=== PATIENT | female | born 1955 | race Caucasian/White ===

== ENCOUNTER 2017-10-26 13:14 | Inpatient (IN) | payer BC ==
[2017-10-26] MEDS ORDERED: ALBUTEROL NEBULIZED 2.5 MG/3 ML INHALATION STA (13:17)
[2017-10-26] MEDS ORDERED: methylPREDNISolone SOD SUCCI 125 MG/2 ML VIAL IV STA (13:17)
[2017-10-26] MEDS ORDERED: SODIUM CHLORIDE 0.9% 1,000 ML IV STA (13:17)
[2017-10-26] MEDS ORDERED: IPRATROPIUM 0.5 MG/2.5 ML NEBU INHALATION STA (13:17)
[2017-10-26] MEDS ORDERED: ACETAMINOPHEN TAB 500 MG TAB PO STA (13:18)
--- NOTE | 2017-10-26 13:20 | ED ---
General Adult HPI - General Stated complaint: SOB Time Seen by Provider: 10/26/17 13:15 Source: RN notes reviewed - History of Present Illness Initial comments: This is a 62-year-old female who presents emergency Department with a history of smoking up until 2 weeks ago. Patient states over the last week significant difficulty breathing and coughing quite a bit. Patient states she did not know she had a fever even though here she has 100.2 temperature. Patient denies any chest pain or palpitations. Patient denies abdominal pain patient denies nausea vomiting or diarrhea. Patient denies any headache patient denies numbness weakness. Patient denies lightheadedness dizziness or near syncopal episode. Patient denies any back pain. Patient denies any recent injury or trauma. - Related Data Home Medications Medication Instructions Recorded Confirmed diphenhydrAMINE [Benadryl] 25 mg PO QID PRN 10/26/17 10/26/17 guaiFENesin [Mucinex] 600 mg PO BID PRN 10/26/17 10/26/17 Allergies Allergy/AdvReac Type Severity Reaction Status Date / Time No Known Allergies Allergy Verified 10/26/17 13:41 Review of Systems ROS Statement: Those systems with pertinent positive or pertinent negative responses have been documented in the HPI. ROS Other: All systems not noted in ROS Statement are negative. General Exam - General Exam Comments Initial Comments: GENERAL: Patient is well-developed and well-nourished. Patient is nontoxic and well- hydrated and is in moderate distress. ENT: Neck is soft and supple. No significant lymphadenopathy is noted. Oropharynx is clear. Moist mucous membranes. Neck has full range of motion without eliciting any pain. EYES: The sclera were anicteric and conjunctiva were pink and moist. Extraocular movements were intact and pupils were equal round and reactive to light. Eyelids were unremarkable. PULMONARY: Patient is wheezing diffusely CARDIOVASCULAR: Patient is tachycardic at 120 beats a minute ABDOMEN: Soft and nontender with normal bowel sounds. No palpable organomegaly was noted. There is no palpable pulsatile mass. SKIN: Skin is clear with no lesions or rashes and otherwise unremarkable. NEUROLOGIC: Patient is alert and oriented x3. Cranial nerves II through XII are grossly intact. Motor and sensory are also intact. Normal speech, volume and content. Symmetrical smile. MUSCULOSKELETAL: Normal extremities with adequate strength and full range of motion. No lower extremity swelling or edema. No calf tenderness. LYMPHATICS: No significant lymphadenopathy is noted PSYCHIATRIC: Normal psychiatric evaluation. Course Vital Signs 10/26/17 10/26/17 10/26/17 13:17 13:27 13:46 Temperature 100.4 F H Pulse Rate 138 H 133 H 137 H Respiratory 26 H Rate Blood Pressure 179/98 O2 Sat by Pulse 91 L Oximetry 10/26/17 10/26/17 13:53 14:28 Temperature 98.3 F Pulse Rate 130 H 111 H Respiratory 22 20 Rate Blood Pressure 194/93 161/83 O2 Sat by Pulse 96 94 L Oximetry Medical Decision Making - Medical Decision Making EKG shows a sinus tachycardia at 135 bpm ME interval is 152 QRS is 60 QT interval is 288 QTC is 432. Patient's EKG shows no significant ST segment elevations. Chest x-ray infiltrate right medial lung base. I started the patient on Rocephin and Zithromax. I continue treatments steroids and antibiotics on the floor. I spoke with because neither the patient for COPD per day consult the pulmonology. I wrote admitting orders. - Lab Data Result diagrams: 10/26/17 13:24 10/26/17 13:24 Lab Results 10/26/17 10/26/17 10/26/17 Range/Units 13:24 13:24 13:24 WBC 12.0 H (3.8-10.6) k/uL RBC 4.77 (3.80-5.40) m/uL Hgb 14.5 (11.4-16.0) gm/dL Hct 45.0 (34.0-46.0) % MCV 94.3 (80.0-100.0) fL MCH 30.4 (25.0-35.0) pg MCHC 32.2 (31.0-37.0) g/dL RDW 12.0 (11.5-15.5) % Plt Count 277 (150-450) k/uL Neutrophils % 86 % Lymphocytes % 9 % Monocytes % 4 % Eosinophils % 1 % Basophils % 0 % Neutrophils # 10.3 H (1.3-7.7) k/uL Lymphocytes # 1.1 (1.0-4.8) k/uL Monocytes # 0.5 (0-1.0) k/uL Eosinophils # 0.1 (0-0.7) k/uL Basophils # 0.0 (0-0.2) k/uL PT (9.0-12.0) sec INR (<1.2) APTT (22.0-30.0) sec Sodium 142 (137-145) mmol/L Potassium 4.0 (3.5-5.1) mmol/L Chloride 101 (98-107) mmol/L Carbon Dioxide 28 (22-30) mmol/L Anion Gap 13 mmol/L BUN 8 (7-17) mg/dL Creatinine 0.60 (0.52-1.04) mg/dL Est GFR (CKD-EPI)AfAm >90 (>60 ml/min/1.73 sqM) Est GFR (CKD-EPI)NonAf >90 (>60 ml/min/1.73 sqM) Glucose 127 H (74-99) mg/dL Plasma Lactic Acid Eddie (0.7-2.0) mmol/L Calcium 10.0 (8.4-10.2) mg/dL Magnesium 2.0 (1.6-2.3) mg/dL Total Bilirubin 0.6 (0.2-1.3) mg/dL AST 26 (14-36) U/L ALT 26 (9-52) U/L Alkaline Phosphatase 101 (38-126) U/L Total Creatine Kinase 167 H (30-135) U/L CK-MB (CK-2) 1.7 (0.0-2.4) ng/mL CK-MB (CK-2) Rel Index 1.0 Troponin I <0.012 (0.000-0.034) ng/mL NT-Pro-B Natriuret Pep pg/mL Total Protein 7.3 (6.3-8.2) g/dL Albumin 4.3 (3.5-5.0) g/dL Influenza Type A RNA (Not Detectd) Influenza Type B (PCR) (Not Detectd) 10/26/17 10/26/17 10/26/17 Range/Units 13:24 13:24 13:24 WBC (3.8-10.6) k/uL RBC (3.80-5.40) m/uL Hgb (11.4-16.0) gm/dL Hct (34.0-46.0) % MCV (80.0-100.0) fL MCH (25.0-35.0) pg MCHC (31.0-37.0) g/dL RDW (11.5-15.5) % Plt Count (150-450) k/uL Neutrophils % % Lymphocytes % % Monocytes % % Eosinophils % % Basophils % % Neutrophils # (1.3-7.7) k/uL Lymphocytes # (1.0-4.8) k/uL Monocytes # (0-1.0) k/uL Eosinophils # (0-0.7) k/uL Basophils # (0-0.2) k/uL PT 9.6 (9.0-12.0) sec INR 1.0 (<1.2) APTT 22.2 (22.0-30.0) sec Sodium (137-145) mmol/L Potassium (3.5-5.1) mmol/L Chloride (98-107) mmol/L Carbon Dioxide (22-30) mmol/L Anion Gap mmol/L BUN (7-17) mg/dL Creatinine (0.52-1.04) mg/dL Est GFR (CKD-EPI)AfAm (>60 ml/min/1.73 sqM) Est GFR (CKD-EPI)NonAf (>60 ml/min/1.73 sqM) Glucose (74-99) mg/dL Plasma Lactic Acid Eddie 1.1 (0.7-2.0) mmol/L Calcium (8.4-10.2) mg/dL Magnesium (1.6-2.3) mg/dL Total Bilirubin (0.2-1.3) mg/dL AST (14-36) U/L ALT (9-52) U/L Alkaline Phosphatase (38-126) U/L Total Creatine Kinase (30-135) U/L CK-MB (CK-2) (0.0-2.4) ng/mL CK-MB (CK-2) Rel Index Troponin I (0.000-0.034) ng/mL NT-Pro-B Natriuret Pep 287 pg/mL Total Protein (6.3-8.2) g/dL Albumin (3.5-5.0) g/dL Influenza Type A RNA (Not Detectd) Influenza Type B (PCR) (Not Detectd) 03/22/18 Range/Units 13:24 WBC (3.8-10.6) k/uL RBC (3.80-5.40) m/uL Hgb (11.4-16.0) gm/dL Hct (34.0-46.0) % MCV (80.0-100.0) fL MCH (25.0-35.0) pg MCHC (31.0-37.0) g/dL RDW (11.5-15.5) % Plt Count (150-450) k/uL Neutrophils % % Lymphocytes % % Monocytes % % Eosinophils % % Basophils % % Neutrophils # (1.3-7.7) k/uL Lymphocytes # (1.0-4.8) k/uL Monocytes # (0-1.0) k/uL Eosinophils # (0-0.7) k/uL Basophils # (0-0.2) k/uL PT (9.0-12.0) sec INR (<1.2) APTT (22.0-30.0) sec Sodium (137-145) mmol/L Potassium (3.5-5.1) mmol/L Chloride (98-107) mmol/L Carbon Dioxide (22-30) mmol/L Anion Gap mmol/L BUN (7-17) mg/dL Creatinine (0.52-1.04) mg/dL Est GFR (CKD-EPI)AfAm (>60 ml/min/1.73 sqM) Est GFR (CKD-EPI)NonAf (>60 ml/min/1.73 sqM) Glucose (74-99) mg/dL Plasma Lactic Acid Eddie (0.7-2.0) mmol/L Calcium (8.4-10.2) mg/dL Magnesium (1.6-2.3) mg/dL Total Bilirubin (0.2-1.3) mg/dL AST (14-36) U/L ALT (9-52) U/L Alkaline Phosphatase (38-126) U/L Total Creatine Kinase (30-135) U/L CK-MB (CK-2) (0.0-2.4) ng/mL CK-MB (CK-2) Rel Index Troponin I (0.000-0.034) ng/mL NT-Pro-B Natriuret Pep pg/mL Total Protein (6.3-8.2) g/dL Albumin (3.5-5.0) g/dL Influenza Type A RNA Not Detected (Not Detectd) Influenza Type B (PCR) Not Detected (Not Detectd) Critical Care Time Critical Care Time: Yes Total Critical Care Time: 35 Disposition Clinical Impression: Pneumonia Disposition: ADMITTED IP TO THIS HOSP Referrals: Jhonatan Artis DO [Primary Care Provider] - 1-2 days Time of Disposition: 14:35
[2017-10-26 13:34] LABS: Basophils % (A) 0 %; Eosinophils # (A) 0.1 k/uL (0-0.7); Eosinophils % (A) 1 %; HGB 14.5 gm/dL (11.4-16.0); Lymphocytes # (A) 1.1 k/uL (1.0-4.8); Lymphocytes % (A) 9 %; MCH 30.4 pg (25.0-35.0); MCHC 32.2 g/dL (31.0-37.0); MCV 94.3 fL (80.0-100.0); Mean Platelet Volume 7.6; Monocytes # (A) 0.5 k/uL (0-1.0); Monocytes % (A) 4 %; Neutrophils # (A) 10.3 k/uL (1.3-7.7); Neutrophils % (A) 86 %; Platelet Count 277 k/uL (150-450); RBC 4.77 m/uL (3.80-5.40)
[2017-10-26 13:42] LABS: Partial Thromboplastin Time 22.2 sec (22.0-30.0); Prothrombin Time 9.6 sec (9.0-12.0)
[2017-10-26 13:43] LABS: ALT 26 U/L (9-52); AST 26 U/L (14-36); Albumin 4.3 g/dL (3.5-5.0); Alkaline Phosphatase 101 U/L (38-126); Anion Gap 13 mmol/L; Blood Urea Nitrogen 8 mg/dL (7-17); Carbon Dioxide 28 mmol/L (22-30); Chloride 101 mmol/L (98-107); Glucose 127 mg/dL (74-99); Sodium 142 mmol/L (137-145); Total Bilirubin 0.6 mg/dL (0.2-1.3); Total Protein 7.3 g/dL (6.3-8.2)
[2017-10-26 13:57] LABS: Creatine Kinase 167 U/L (30-135)
--- NOTE | 2017-10-26 14:09 | XR ---
EXAMINATION TYPE: XR chest 2V DATE OF EXAM: 10/26/2017 COMPARISON: NONE HISTORY: Shortness of breath TECHNIQUE: Frontal and lateral views of the chest are obtained. FINDINGS: Scattered senescent parenchymal changes noted. Hyperinflation compatible with COPD. Increased density right medial lung base could reflect atelectasis or developing infiltrate. Correlat e clinically and consider progress studies. Heart size is stable. Mediastinal structures are stable and grossly unremarkable. No evidence for hilar prominence. Degenerative changes dorsal spine. IMPRESSION: 1. Increased density right medial lung base could reflect atelectasis or developing infiltrate. Corre late clinically and consider progress studies.
[2017-10-26 14:10] LABS: Creatine Kinase MB 1.7 ng/mL (0.0-2.4); Troponin I <0.012 ng/mL (0.000-0.034)
[2017-10-26] MEDS ORDERED: cefTRIAXone IN SWFI 1,000 MG/10 ML SYRINGE IVP STA (14:30)
[2017-10-26] MEDS ORDERED: AZITHROMYCIN 500 MG in SODIUM CHLORIDE 0.9% 250 ML IVPB STA (14:34)
[2017-10-26] MEDS ORDERED: PNEUMONIA PROTOCOL UTILIZED 1 EACH MISC PO PRN (14:35)
[2017-10-26] MEDS ORDERED: IPRATROPIUM-ALBUTEROL 3 ML NEB INHALATION PRN (15:21)
[2017-10-26] MEDS ORDERED: diphenhydrAMINE 25 MG CAP PO PRN (15:22)
--- NOTE | 2017-10-26 15:27 | P.HPIM ---
History of Present Illness 62-year-old female never diagnosed with COPD came in with compensative shortness of breath has been going on for 2 days much worse today along with cough with white-yellow sputum production smoke 1 pack per day has been smoking since age 16 patient denied any fever chills patient has some atelectasis in the right lower lung [place]. Patient denied any fever chills. Review of Systems REVIEW OF SYSTEMS: CONSTITUTIONAL: No fever, no malaise, no fatigue. HEENT: No recent visual problems or hearing problems. Denied any sore throat. CARDIOVASCULAR: No chest pain, orthopnea, PND, no palpitations, no syncope. PULMONARY: no hemoptysis. GASTROINTESTINAL: No diarrhea, no nausea, no vomiting, no abdominal pain. Normoactive bowel sounds. NEUROLOGICAL: No headaches, no weakness, no numbness. HEMATOLOGICAL: Denies any bleeding or petechiae. GENITOURINARY: Denies any burning micturition, frequency, or urgency. MUSCULOSKELETAL/RHEUMATOLOGICAL: Denies any joint pain, swelling, or any muscle pain. ENDOCRINE: Denies any polyuria or polydipsia. The rest of the 14-point review of systems is negative. Past Medical History Past Medical History: No Reported History History of Any Multi-Drug Resistant Organisms: None Reported Past Surgical History: Breast Surgery Past Psychological History: No Psychological Hx Reported Smoking Status: Former smoker Past Alcohol Use History: Occasional Past Drug Use History: None Reported Medications and Allergies Home Medications Medication Instructions Recorded Confirmed Type diphenhydrAMINE [Benadryl] 25 mg PO QID PRN 10/26/17 10/26/17 History guaiFENesin [Mucinex] 600 mg PO BID PRN 10/26/17 10/26/17 History Allergies Allergy/AdvReac Type Severity Reaction Status Date / Time No Known Allergies Allergy Verified 10/26/17 13:41 Physical Exam Vitals: Vital Signs Temp Pulse Resp BP Pulse Ox 10/26/17 15:04 125 H 22 158/69 93 L 10/26/17 14:28 98.3 F 111 H 20 161/83 94 L 10/26/17 13:53 130 H 22 194/93 96 10/26/17 13:46 137 H 10/26/17 13:27 133 H 10/26/17 13:17 100.4 F H 138 H 26 H 179/98 91 L Intake and Output 10/26/17 10/26/17 10/26/17 06:59 14:59 22:59 Other: Weight 68.039 kg PHYSICAL EXAMINATION: GENERAL: The patient is alert and oriented x3, not in any acute distress. Well developed, well nourished. HEENT: Pupils are round and equally reacting to light. EOMI. No scleral icterus. No conjunctival pallor. Normocephalic, atraumatic. No pharyngeal erythema. No thyromegaly. CARDIOVASCULAR: S1 and S2 present. No murmurs, rubs, or gallops. PULMONARY: Decreased air entry bilateral lung everett minimal expiratory wheezing was appreciated rhonchus breath sounds ABDOMEN: Soft, nontender, nondistended, normoactive bowel sounds. No palpable organomegaly. MUSCULOSKELETAL: No joint swelling or deformity. EXTREMITIES: No cyanosis, clubbing, or pedal edema. NEUROLOGICAL: Gross neurological examination did not reveal any focal deficits. SKIN: No rashes. Results CBC & Chem 7: 10/26/17 13:24 10/26/17 13:24 Labs: Abnormal Lab Results - Last 24 Hours (Table) 10/26/17 10/26/17 10/26/17 Range/Units 13:24 13:24 13:24 WBC 12.0 H (3.8-10.6) k/uL Neutrophils # 10.3 H (1.3-7.7) k/uL Glucose 127 H (74-99) mg/dL Total Creatine Kinase 167 H (30-135) U/L Assessment and Plan Plan: -Acute hypercapnic respiratory failure secondary to COPD exacerbation, patient was started on systemic steroids patient only has minimal wheeze I'm expecting her to improve by tomorrow. Patient will need outpatient pulmonary function testing. Patient will be on azithromycin for bronchitis. My suspicion for pneumonia is extremely low patient does have atelectasis incentive spirometry. Pulmonary will be consulted. -Tracheobronchitis -" In use: Counseling was provided -Post [employer] drip with the seasonal ALLERGIES: Patient is on diphenhydramine which will be continued
[2017-10-26] MEDS ORDERED: RX INFO: IV CONTRAST WAS GIVEN 1 EACH MISC MISCELLANE PRN (15:28)
[2017-10-26] MEDS: IPRATROPIUM-ALBUTEROL 3 ML NEB INHALATION SCH ×2 (16:35→19:57)
[2017-10-27 07:25] LABS: HGB 13.9 gm/dL (11.4-16.0); MCH 32.3 pg (25.0-35.0); MCHC 33.8 g/dL (31.0-37.0); MCV 95.6 fL (80.0-100.0); Mean Platelet Volume 7.1; Platelet Count 309 k/uL (150-450); RBC 4.29 m/uL (3.80-5.40); RDW 11.8 % (11.5-15.5); WBC 12.4 k/uL (3.8-10.6)
[2017-10-27 07:38] LABS: Anion Gap 15 mmol/L; Blood Urea Nitrogen 7 mg/dL (7-17); Calcium 9.9 mg/dL (8.4-10.2); Carbon Dioxide 23 mmol/L (22-30); Chloride 105 mmol/L (98-107); Glucose 108 mg/dL (74-99); Magnesium 2.2 mg/dL (1.6-2.3); Potassium 4.4 mmol/L (3.5-5.1); Sodium 143 mmol/L (137-145)
[2017-10-27] MEDS: IPRATROPIUM-ALBUTEROL 3 ML NEB INHALATION SCH ×4 (07:47→20:20)
[2017-10-27] MEDS: AZITHROMYCIN 500 MG TAB PO SCH (08:35)
[2017-10-27] MEDS ORDERED: predniSONE 20 MG TAB PO SCH (09:00)
--- NOTE | 2017-10-27 12:10 | P.PN ---
Subjective Patient was admitted for presumed exacerbation still wheezing is on 2 L will will taper oxygen off. There is still concern for pulmonary embolism, will obtain a CT angios the chest to rule out PE today. Constitutional: Denied any fatigue denied any fever. Cardio vascular: denied any chest pain, palpitations Gastrointestinal denied any nausea vomiting Pulmonary: Shortness of breath improved compared to yesterday. Neurologic denied any new focal deficits Objective - Vital Signs Vital signs: Vital Signs Temp 97.2 F L 10/27/17 11:30 Pulse 91 10/27/17 11:30 Resp 24 10/27/17 11:30 BP 158/77 10/27/17 11:30 Pulse Ox 95 10/27/17 11:30 Intake & Output 10/26/17 10/27/17 10/27/17 18:59 06:59 18:59 Intake Total 120 425 240 Output Total 300 Balance 120 425 -60 Weight 68.039 kg 66.5 kg Intake: Intake, IV Titration 125 Amount Azithromycin 500 mg In 125 Sodium Chloride 0.9% 250 ml @ 125 mls/hr IVPB Q24H [facility] Rx#:[id number] Oral 120 300 240 Output: Urine 300 Other: Voiding Method Toilet Toilet Toilet # Voids 1 1 1 - Exam PHYSICAL EXAMINATION: GENERAL: The patient is alert and oriented x3, not in any acute distress. Well developed, well nourished. HEENT: Pupils are round and equally reacting to light. EOMI. No scleral icterus. No conjunctival pallor. Normocephalic, atraumatic. No pharyngeal erythema. No thyromegaly. CARDIOVASCULAR: S1 and S2 present. No murmurs, rubs, or gallops. PULMONARY: Decreased air entry bilateral lung [place]rett minimal expiratory wheezing was appreciated rhonchus breath sounds ABDOMEN: Soft, nontender, nondistended, normoactive bowel sounds. No palpable organomegaly. MUSCULOSKELETAL: No joint swelling or deformity. EXTREMITIES: No cyanosis, clubbing, or pedal edema. NEUROLOGICAL: Gross neurological examination did not reveal any focal deficits. SKIN: No rashes. - Labs CBC & Chem 7: 10/27/17 07:06 10/27/17 07:06 Labs: Abnormal Lab Results - Last 24 Hours (Table) 10/26/17 10/26/17 10/26/17 Range/Units 13:24 13:24 13:24 WBC 12.0 H (3.8-10.6) k/uL Neutrophils # 10.3 H (1.3-7.7) k/uL Creatinine (0.52-1.04) mg/dL Glucose 127 H (74-99) mg/dL Total Creatine Kinase 167 H (30-135) U/L 10/27/17 10/27/17 Range/Units 07:06 07:06 WBC 12.4 H (3.8-10.6) k/uL Neutrophils # (1.3-7.7) k/uL Creatinine 0.43 L (0.52-1.04) mg/dL Glucose 108 H (74-99) mg/dL Total Creatine Kinase (30-135) U/L Assessment and Plan Plan: -Acute hypercapnic respiratory failure secondary to COPD exacerbation, patient was started on systemic steroids Patient will need outpatient pulmonary function testing. Patient will be on azithromycin for bronchitis. My suspicion for pneumonia is extremely low patient does have atelectasis incentive spirometry. Pulmonary will be consulted. -Tracheobronchitis -" In use: Counseling was provided -Post [employer] drip with the seasonal ALLERGIES: Patient is on diphenhydramine which will be continued -Rule out pulmonary embolism
[2017-10-27] MEDS ORDERED: IPRATROPIUM-ALBUTEROL 3 ML NEB INHALATION PRN (13:00)
[2017-10-27] MEDS ORDERED: diphenhydrAMINE 25 MG CAP PO PRN (13:07)
--- NOTE | 2017-10-27 13:55 | P.CNPUL ---
History of Present Illness Consult date: 10/27/17 Reason for consult: dyspnea, cough, COPD, hypoxemia, pneumonia, abnormal CXR/CT Chief complaint: Shortness of breath, pneumonia History of present illness: Consult dated 10/27/2017 62-year-old female who presents to the emergency department complaining of shortness of breath cough chest congestion and difficulty breathing. She also had a fever. She hasn't been feeling well for last week or so. She's been smoking up until about 2 weeks ago. She's been smoking for many many years and likely has underlying COPD. The patient states that she's had chest congestion coughing wheezing and phlegm production. Again hasn't been feeling well for about a week or so. Recently stopped smoking. The patient has never seen a lung doctor before. Has no established history of COPD. The patient's chest x- ray shows evidence of COPD and possible right lower lobe infiltrate. Chest auscultation showed symptoms significant wheezing and coarseness as well as rhonchi. There is also prolongation on forced maneuver consistent with underlying COPD. Review of Systems A 12 point review of system is positive for chest congestion coughing wheezing shortness of breath difficulty breathing. She does cough up some yellow phlegm. Past Medical History Past Medical History: No Reported History History of Any Multi-Drug Resistant Organisms: None Reported Past Surgical History: Breast Surgery Past Psychological History: No Psychological Hx Reported Smoking Status: Former smoker Past Alcohol Use History: Occasional Past Drug Use History: None Reported Medications and Allergies Home Medications Medication Instructions Recorded Confirmed Type diphenhydrAMINE [Benadryl] 25 mg PO QID PRN 10/26/17 10/26/17 History guaiFENesin [Mucinex] 600 mg PO BID PRN 10/26/17 10/26/17 History Allergies Allergy/AdvReac Type Severity Reaction Status Date / Time No Known Allergies Allergy Verified 10/26/17 13:41 Physical Exam Osteopathic Statement: *. No significant issues noted on an osteopathic structural exam other than those noted in the History and Physical/Consult. Vitals: Vital Signs Temp Pulse Pulse Resp BP BP Pulse Ox 10/27/17 11:30 97.2 F L 91 24 158/77 95 10/27/17 11:29 105 H 18 10/27/17 11:25 99 10/27/17 11:15 96 10/27/17 08:17 18 95 10/27/17 08:00 96.5 F L 96 105 H 18 154/72 88 L 10/27/17 07:49 88 10/27/17 04:00 96.9 F L 82 19 151/93 97 10/27/17 00:00 97.0 F L 96 19 144/80 97 10/26/17 20:05 105 H 16 10/26/17 20:00 97.5 F L 104 H 16 143/84 92 L 10/26/17 19:57 105 H 16 10/26/17 18:31 97.4 F L 123 H 24 160/82 92 L 10/26/17 18:26 123 H 16 10/26/17 18:25 93 L 10/26/17 16:40 110 H 16 10/26/17 16:33 107 H 16 95 10/26/17 15:21 97.4 F L 123 H 24 160/82 92 L 10/26/17 15:04 125 H 22 158/69 93 L 10/26/17 14:28 98.3 F 111 H 20 161/83 94 L 10/26/17 13:53 130 H 22 194/93 96 Intake and Output 10/26/17 10/27/17 10/27/17 22:59 06:59 14:59 Intake Total 120 425 240 Output Total 300 Balance 120 425 -60 Intake: Intake, IV Titration 125 Amount Azithromycin 500 mg In 125 Sodium Chloride 0.9% 250 ml @ 125 mls/hr IVPB Q24H [facility] Rx#:[id number] Oral 120 300 240 Output: Urine 300 Other: Voiding Method Toilet Toilet Toilet # Voids 1 1 1 Weight 66.5 kg No acute distress, oriented 3. Nasal O2 in place. HEENT examination is grossly unremarkable. Mucous membranes are moist. No oral lesions. Neck supple. Full range of motion. No adenopathy thyromegaly or neck vein distention. Cardiovascular examination reveals regular rhythm rate. S1-S2 normal. No S3 or S4. No discernible murmur noted. Lungs reveal coarse inspiratory and expiratory rhonchi and wheezes. Breath sounds are diminished. There is prolongation on forced maneuver. The patient coughs and wheezes on forced maneuver. Abdomen soft bowel sounds are heard. No masses or tenderness. Extremities are intact. No cyanosis clubbing or edema. Skin is without rash or lesion. Neurologic examination is brief but nonfocal. Results - Laboratory Findings CBC and BMP: 10/27/17 07:06 10/27/17 07:06 PT/INR, D-dimer PT 9.6 sec (9.0-12.0) 10/26/17 13:24 INR 1.0 (<1.2) 10/26/17 13:24 Abnormal lab findings: Abnormal Labs 10/26/17 10/26/17 10/26/17 13:24 13:24 13:24 WBC 12.0 H Neutrophils # 10.3 H Creatinine Glucose 127 H Total Creatine Kinase 167 H 10/27/17 10/27/17 07:06 07:06 WBC 12.4 H Neutrophils # Creatinine 0.43 L Glucose 108 H Total Creatine Kinase - Diagnostic Findings Chest x-ray: image reviewed (Labs x-rays a medications are all reviewed.) Assessment and Plan Assessment: Assessment Likely COPD exacerbation complicated by purulent tracheobronchitis or bronchopneumonia, right lower lobe COPD, likely secondary to heavy tobacco use Recent tobacco cessation Plan: Plan dated 10/27/2017 I've cut the prednisone dose down from 60 mg to 30 mg a day. The patient will continue with the updrafts 3 times a day and when necessary. The patient's currently on Zithromax and Rocephin his antibiotics for her pneumonia. She is doing okay. I suspect she'll be able to be discharged tomorrow. She should have follow-up in the pulmonary office for pulmonary function test. She is really not happy about any the medications that she is on it she normally takes no medication at home. Time with Patient: Greater than 30
--- NOTE | 2017-10-27 14:39 | XR ---
EXAMINATION TYPE: XR chest 2V DATE OF EXAM: 10/27/2017 COMPARISON: Prior chest x-ray 10/26/2017 HISTORY: Shortness of breath, pneumonia TECHNIQUE: Frontal and lateral views of the chest are obtained. FINDINGS: There is no pleural effusion or pneumothorax seen. Question some increased density in the right middle lobe as on prior exam although there may be a pectus deformity which could cause this ap pearance, correlate. Prominent lung volumes may be indicative of COPD, bronchial wall thickening note d. The cardiac silhouette size is within normal limits. There is a spinal curvature. The osseous str uctures are intact. IMPRESSION: Correlate for pneumonia versus bronchitis or reactive airways disease, follow-up as darlyn cated.
[2017-10-27] MEDS ORDERED: cefTRIAXone IN SWFI 1,000 MG/10 ML SYRINGE IVP SCH (16:00)
[2017-10-27] MEDS ORDERED: AZITHROMYCIN 500 MG in SODIUM CHLORIDE 0.9% 250 ML IVPB SCH (16:00)
[2017-10-27] MEDS ORDERED: diphenhydrAMINE 25 MG CAP PO SCH (16:00)
[2017-10-28] MEDS: IPRATROPIUM-ALBUTEROL 3 ML NEB INHALATION SCH ×2 (07:41→13:31)
[2017-10-28] MEDS ORDERED: predniSONE 10 MG TAB PO SCH (09:00)
[2017-10-28 09:32] LABS: HCT 38.9 % (34.0-46.0); HGB 12.7 gm/dL (11.4-16.0); MCH 30.8 pg (25.0-35.0); MCHC 32.6 g/dL (31.0-37.0); MCV 94.4 fL (80.0-100.0); Mean Platelet Volume 8.8; Platelet Count 284 k/uL (150-450); RBC 4.12 m/uL (3.80-5.40); RDW 12.1 % (11.5-15.5); WBC 12.8 k/uL (3.8-10.6)
[2017-10-28 10:31] LABS: Anion Gap 14 mmol/L
[2017-10-28 10:40] LABS: Blood Urea Nitrogen 10 mg/dL (7-17); Carbon Dioxide 25 mmol/L (22-30); Chloride 105 mmol/L (98-107); Glucose 108 mg/dL (74-99); Potassium 3.9 mmol/L (3.5-5.1); Sodium 144 mmol/L (137-145)
[2017-10-28 10:41] LABS: Calcium 9.5 mg/dL (8.4-10.2)
--- NOTE | 2017-10-28 12:21 | P.PN ---
Subjective Progress Note Date: 10/28/17 Principal diagnosis: Shortness of breath, COPD exacerbation Progress note dated 10/28/2017 This is a very pleasant 62-year-old female who was admitted with a diagnosis of COPD exacerbation and tracheobronchitis as bronchopneumonia, right lower lobe. She likely has COPD from heavy tobacco use. Yesterday she was very angry and today she is doing much better. She wants to be discharged home to finish therapy at home. The patient also has a history of recent tobacco cessation. She does not really take any medications at home. She is feeling a lot better today though. Objective - Vital Signs Vital signs: Vital Signs Temp 97.0 F L 10/28/17 06:34 Pulse 92 10/28/17 07:53 Resp 20 10/28/17 06:34 BP 155/98 10/28/17 06:34 Pulse Ox 94 L 10/28/17 06:34 Intake & Output 10/27/17 10/28/17 10/28/17 18:59 06:59 18:59 Intake Total 240 950 Output Total 800 Balance -560 950 Intake: Oral 240 950 Output: Urine 800 Other: Voiding Method Toilet # Voids 1 2 - Exam No acute distress, oriented 3. HEENT examination is grossly unremarkable. Mucous membranes are moist. No oral lesions. Neck supple. Full range of motion. No adenopathy thyromegaly or neck vein distention. Cardiovascular examination reveals regular rhythm rate. S1-S2 normal. No S3 or S4. No discernible murmur noted. Lungs reveal a few scattered rhonchi and wheezes. Breath sounds are diminished. This prolongation on forced maneuver. The patient certainly sounds better but not back to baseline.. Abdomen soft bowel sounds are heard. No masses or tenderness. Extremities are intact. No cyanosis clubbing or edema. Skin is without rash or lesion. Neurologic examination is brief but nonfocal. - Labs CBC & Chem 7: 10/28/17 08:30 10/28/17 08:30 Labs: Abnormal Lab Results - Last 24 Hours (Table) 10/28/17 10/28/17 Range/Units 08:30 08:30 WBC 12.8 H (3.8-10.6) k/uL Glucose 108 H (74-99) mg/dL Microbiology - Last 24 Hours (Table) 10/26/17 13:24 Blood Culture - Preliminary Blood No Growth after 24 hours Assessment and Plan Assessment: Assessment Likely COPD exacerbation complicated by purulent tracheobronchitis or bronchopneumonia, right lower lobe COPD, likely secondary to heavy tobacco use Recent tobacco cessation Plan: Plan dated 10/27/2017 I've cut the prednisone dose down from 60 mg to 30 mg a day. The patient will continue with the updrafts 3 times a day and when necessary. The patient's currently on Zithromax and Rocephin his antibiotics for her pneumonia. She is doing okay. I suspect she'll be able to be discharged tomorrow. She should have follow-up in the pulmonary office for pulmonary function test. She is really not happy about any the medications that she is on it she normally takes no medication at home. Plan dated 10/28/2017 The patient could be discharged home. This cut back the prednisone dose. She can be discharged home with some oral antibiotics. She'll finish up therapy at home. She promises to come see me in the office for follow-up. She will need a pulmonary function test. Labs from today include a white count of 12.8 hemoglobin and hematocrit and platelet count all of which was normal. Her electrolytes look pretty good. Sodium potassium chloride and CO2 as well as renal function all normal. Nasal swabs for influenza were normal. Time with Patient: Less than 30
[2017-10-28] MEDS: AZITHROMYCIN 500 MG TAB PO SCH (12:40)
--- NOTE | 2017-10-28 13:18 | P.DS ---
Providers Date of admission: 10/26/17 14:35 Attending physician: Jill Martinez Consults: 10/26/17 14:35 Consult Physician Routine Consulting Provider: Ranjan Edge Consult Reason/Comments: COPD, pneumonia Do you want consulting provider notified?: Yes 10/26/17 15:27 Consult Physician Routine Consulting Provider: Megan Jackson Consult Reason/Comments: COPD exacerbation Do you want consulting provider notified?: Yes [facility] care [facility] Course: Patient was admitted for COPD exacerbation patient is fairly clinically doing well is requiring oxygen patient is now is independent COPD and also dependent respiratory failure patient will require 2 L of onset at home. PHYSICAL EXAMINATION: GENERAL: The patient is alert and oriented x3, not in any acute distress. Well developed, well nourished. HEENT: Pupils are round and equally reacting to light. EOMI. No scleral icterus. No conjunctival pallor. Normocephalic, atraumatic. No pharyngeal erythema. No thyromegaly. CARDIOVASCULAR: S1 and S2 present. No murmurs, rubs, or gallops. PULMONARY: Wheezing improved significantly. ABDOMEN: Soft, nontender, nondistended, normoactive bowel sounds. No palpable organomegaly. MUSCULOSKELETAL: No joint swelling or deformity. EXTREMITIES: No cyanosis, clubbing, or pedal edema. NEUROLOGICAL: Gross neurological examination did not reveal any focal deficits. SKIN: No rashes. Please refer to dictation a progress note from yesterday for further details of other chronic medical problems hospitalization course. Plan - Discharge Summary Discharge Rx Participant: Yes New Discharge Prescriptions: New Albuterol Inhaler [Ventolin Hfa Inhaler] 1 - 2 puff INHALATION Q6HR PRN #1 inhaler PRN Reason: Shortness Of Breath Or Wheezing Budesonide-Formot 160-4.5 Mcg [Symbicort 160-4.5 Mcg Inhaler] 2 puff INHALATION BID #1 inhaler Levofloxacin [Levaquin] 500 mg PO DAILY #7 tab predniSONE 10 mg PO DAILY #30 tab Tiotropium Levant [Spiriva] 1 cap INHALATION DAILY #1 device No Action diphenhydrAMINE [Benadryl] 25 mg PO QID PRN PRN Reason: Congestion guaiFENesin [Mucinex] 600 mg PO BID PRN PRN Reason: Congestion Discharge Medication List diphenhydrAMINE [Benadryl] 25 mg PO QID PRN 10/26/17 [History] guaiFENesin [Mucinex] 600 mg PO BID PRN 10/26/17 [History] Albuterol Inhaler [Ventolin Hfa Inhaler] 1 - 2 puff INHALATION Q6HR PRN #1 inhaler 10/28/17 [Rx] Budesonide-Formot 160-4.5 Mcg [Symbicort 160-4.5 Mcg Inhaler] 2 puff INHALATION BID #1 inhaler 10/28/17 [Rx] Levofloxacin [Levaquin] 500 mg PO DAILY #7 tab 10/28/17 [Rx] Tiotropium Levant [Spiriva] 1 cap INHALATION DAILY #1 device 10/28/17 [Rx] predniSONE 10 mg PO DAILY #30 tab 10/28/17 [Rx] Follow up Appointment(s)/Referral(s): Ranjan Edge DO [Doctor of Osteopathic Medicine] - 1 Week Jhonatan Artis DO [Primary Care Provider] - 3 Days Patient Instructions/Handouts: COPD (Chronic Obstructive Pulmonary Disease) ( GEN) Activity/Diet/Wound Care/Special Instructions: [facility] [phone]. Discharge Disposition: HOME SELF-CARE
[2017-10-28 15:03] VITALS: BP 151/92; PULSE 106; RESP 17; TEMP 97.6
== END 2017-10-28 16:39 | disposition home or self-care (01) | DRG 190 ==
LOC: EC 13:14 → 6SEL 14:35 → 4MS4W 10-27 16:07
PROVIDERS: ADMIT Internal Medicine; ATTEND Internal Medicine
DX: J44.0 Chronic obstructive pulmonary disease with (acute) lower respiratory infection (principal); J96.01 Acute respiratory failure with hypoxia; J96.02 Acute respiratory failure with hypercapnia; J98.11 Atelectasis; J20.9 Acute bronchitis, unspecified; J44.1 Chronic obstructive pulmonary disease with (acute) exacerbation; J30.2 Other seasonal allergic rhinitis; Z71.6 Tobacco abuse counseling; Z79.899 Other long term (current) drug therapy; Z72.0 Tobacco use
CPT/HCPCS: 36415; 71046; 80048; 80053; 82550; 82553; 83605; 83735; 83880; 84484; 85025; 85027; 85610; 85730; 87040; 87070; 87205; 87502; 93005; 94640; 94760; 96361; 96365; 96375; 99291